=== PATIENT | male | born 1935 | race Caucasian/White ===

== ENCOUNTER 2019-11-14 07:56 | Outpatient (CLI) | payer OTHER, SELFPAY ==
--- NOTE | ~2019-11-14 | NM_ITS ---
EXAMINATION: NM bone scan whole body DATE: 11/14/2019 12:02 INDICATION: Prostate cancer TECHNIQUE: 23.8 mCi Tc-99m HDP was administered intravenously. Delayed whole-body scintigrams were o btained. COMPARISON: CT abdomen and pelvis dated 03/24/2017 FINDINGS: Likely degenerative joint centered uptake at the radial aspect of the bilateral carpi, at the medial compartment of the right knee and at the left ankle. Mild S-shaped curvature of the thoracolumbar spi ne. Likely degenerative horizontal disc centered increased uptake at L4-L5 and L5-S1. With severe dis c height loss and degenerative endplate changes on prior CT. There is a more atypical focus of increa sed uptake at the medial side of the right acetabulum in an atypical location for osteoarthritis and without evident correlate on the CT from 2 years prior. Small focus of penile urine contamination. IMPRESSION: 1. Small focus of increased bone uptake in atypical location at the medial aspect of the right acetab ulum and metastatic disease cannot be excluded. Consider further evaluation with CT or pre and postco ntrast MRI. Reviewed, dictated and finalized at location A. IMPRESSION: 1. Small focus of increased bone uptake in atypical location at the medial aspe ct of the right acetabulum and metastatic disease cannot be excluded. Consider further evaluation with CT or pre and postcontrast MRI.
== END 2019-11-14 07:57 | disposition home or self-care (01) ==
LOC: ANHIMG 07:59
PROVIDERS: PCP Family Medicine Adolescent Medicine; Visit Provider Urology
DX: C61 Malignant neoplasm of prostate (principal); R93.7 Abnormal findings on diagnostic imaging of other parts of musculoskeletal system
CPT/HCPCS: 78306; A9561